=== PATIENT | male | born 1990 | race Asian ===

== ENCOUNTER 2022-07-26 09:42 | Emergency (ER) | payer MEDICARE, OTHER ==
[~2022-07-26] VITALS: Ht 152.4 cm; Wt 45.5 kg
[2022-07-26] MEDS ORDERED: BACL5TAB PO (09:55)
[2022-07-26] MEDS ORDERED: DIAZEPAM 5 MG TABLET PO ONE (10:15)
[2022-07-26] MEDS ORDERED: SODIUM CHLORIDE 0.9% 1,000 ML IV ONE ×2 (12:30→13:45)
[2022-07-26 12:52] LABS: BASOPHILS % (AUTO) 0.6 % (0.0-2.0); EOSINOPHILS % (AUTO) 0.2 % (1.0-6.0); HEMATOCRIT 43.2 % (41-53); HEMOGLOBIN 13.9 g/dL (13.5-17.5); LYMPHOCYTES # (AUTO) 2.3 K/uL (1.0-4.8); LYMPHOCYTES % (AUTO) 15.5 % (22.0-44.0); MEAN CORPUSCULAR HEMOGLOBIN 28.9 pg (26.0-34.0); MEAN CORPUSCULAR HGB CONC 32.2 G/dL (31.0-37.0); MEAN CORPUSCULAR VOLUME 90 fL (80-100); MONOCYTES # (AUTO) 0.7 K/uL (0.1-1.0); NEUTROPHILS # (AUTO) 11.8 K/uL (1.8-7.7); NEUTROPHILS % (AUTO) 78.7 % (40.0-70.0); PLATELET COUNT (AUTO) 421 K/uL (150-450); RED BLOOD CELL COUNT(AUTO) 4.82 MIL/uL (4.50-5.90); RED CELL DISTRIBUTION WIDTH 12.4 % (11.5-14.5)
[2022-07-26 13:21] LABS: ANION GAP 10 mmol/L (8-16); CALCIUM, TOTAL 9.9 mg/dL (8.8-10.5); CARBON DIOXIDE 27 mmol/L (22-29); CHLORIDE 103 mmol/L (98-107); CREATININE 0.65 mg/dL (0.60-1.30); GLUCOSE,RANDOM 84 mg/dL (70-110); POTASSIUM 3.7 mmol/L (3.5-5.1); SODIUM SERUM 140 mmol/L (136-145); UREA NITROGEN, BLOOD 13 mg/dL (7-18)
[2022-07-26 13:22] LABS: GLOMERULAR FILTR. RATE CALC > 60 mL/min (>60)
[2022-07-26 13:24] LABS: LACTIC ACID 3.4 mmol/L (0.4-2.0)
[2022-07-26 13:46] LABS: ALANINE AMINOTRANSFERASE 45 U/L (12-78); ALBUMIN 4.7 g/dL (3.4-5.0); ALKALINE PHOSPHATASE 101 U/L (46-116); ASPARTATE AMINOTRANSFERASE 36 U/L (15-37); BILIRUBIN,TOTAL 0.5 mg/dL (0.1-1.0); CREATINE KINASE, TOTAL ONLY 485 U/L (39-308); TOTAL PROTEIN, SERUM 9.1 g/dL (6.4-8.2)
[2022-07-26 14:08] LABS: COVID AG,FIA SOURCE NASAL SWAB
[2022-07-26 14:14] LABS: B-TYPE NATRIURETIC PEPTIDE 6 pg/mL (0-100)
[2022-07-26 14:28] LABS: INFLUENZA TYPE A NEGATIVE FOR TYPE A (NEGATIVE); INFLUENZA TYPE B NEGATIVE FOR TYPE B (NEGATIVE)
[2022-07-26] MEDS ORDERED: LORazepam 2 MG/ML VIAL IVP ONE (15:00)
[2022-07-26 15:06] LABS: APPEARANCE,URINE CLEAR (CLEAR); BILIRUBIN,URINE NEGATIVE (NEGATIVE); GLUCOSE, URINE (UA) NEGATIVE (NEGATIVE); KETONES,URINE 80-100 mg/dL (NEGATIVE); LEUKOCYTE ESTERASE ,URINE NEGATIVE (NEGATIVE); NITRATE,URINE NEGATIVE (NEGATIVE); OCCULT BLOOD,URINE SMALL (NEGATIVE); PROTEIN,URINE 30-70 mg/dL (NEGATIVE); SPECIFIC GRAVITIY, URINE 1.031 (1.003-1.030); UROBILINOGEN,URINE <=1.0 mg/dL (<=1.0)
[2022-07-26 15:17] LABS: BACTERIA,URINE Few /HPF (None Seen); SQUAMOUS EPITHELIAL CELL,UR Few /LPF (None Seen); WBC,URINE 0-2 /HPF (0-5)
[2022-07-26] MEDS ORDERED: AZITHROMYCIN 500 MG/NS 250 ML IV ONE (15:30)
[2022-07-26] MEDS ORDERED: CefTRIAXone 1 GM/DEXTROSE 50 ML IV ONE (15:30)
[2022-07-26 15:36] LABS: GLUCOMETER DEV NAME(LOC) ERT.5; GLUCOSE,POINT OF CARE 91 MG/DL (70-110)
[2022-07-26] MEDS ORDERED: LORA-1000 PO (16:27)
[2022-07-26] MEDS ORDERED: CEPH-558 PO (16:27)
[2022-07-26 17:53] VITALS: BP 137/97
== END 2022-07-26 18:02 | disposition left against medical advice (07) ==
LOC: EMS 09:48
DX: G80.9 Cerebral palsy, unspecified (principal); Z20.822 Contact with and (suspected) exposure to COVID-19; M62.838 Other muscle spasm; M62.82 Rhabdomyolysis; R00.0 Tachycardia, unspecified; R74.02 Elevation of levels of lactic acid dehydrogenase [LDH]
CPT/HCPCS: 99285; 96365; 71045; 96361; 96375; 87426; 80053; 81001; 82550; 82962; 83605; 83880; 84484; 85025; 87040; 87804; 93005; 96368; 84145; 36415; J0456; J0696; J2060; J7030; 99283

== ENCOUNTER 2022-08-05 07:55 | Inpatient (IN) | payer MEDICARE, OTHER ==
[~2022-08-05] VITALS: Ht 157.5 cm; Wt 54.5 kg
[~2022-08-05 07:55] MED LIST: BACL5TAB PO; CEPH-558 PO; LORA-1000 PO
[2022-08-05] MEDS ORDERED: BACL20TA PO (08:08)
[2022-08-05] MEDS ORDERED: DIAZ5TAB5 PO (08:08)
[2022-08-05] MEDS ORDERED: LORazepam 2 MG/ML VIAL IM ONE (08:30)
[2022-08-05] MEDS ORDERED: SODIUM CHLORIDE 0.9% 2,000 ML IV ONE (09:00)
[2022-08-05] MEDS ORDERED: DiphenhydrAMINE HCL 50 MG/ML VIAL IVP ONE (09:00)
[2022-08-05] MEDS ORDERED: DIAZEPAM 5 MG/ML 2 ML SYRINGE IVP ONE (09:00)
[2022-08-05] MEDS ORDERED: BACLOFEN 10 MG TABLET PO ONE (09:00)
[2022-08-05 09:26] LABS: COVID AG,FIA SOURCE NASOPHARYNGEAL
[2022-08-05 09:28] LABS: BASOPHILS % (AUTO) 0.7 % (0.0-2.0); EOSINOPHILS % (AUTO) 0.1 % (1.0-6.0); HEMATOCRIT 41.8 % (41-53); HEMOGLOBIN 13.7 g/dL (13.5-17.5); LYMPHOCYTES # (AUTO) 1.6 K/uL (1.0-4.8); LYMPHOCYTES % (AUTO) 11.9 % (22.0-44.0); MEAN CORPUSCULAR HEMOGLOBIN 28.9 pg (26.0-34.0); MEAN CORPUSCULAR HGB CONC 32.7 G/dL (31.0-37.0); MEAN CORPUSCULAR VOLUME 89 fL (80-100); MONOCYTES # (AUTO) 0.6 K/uL (0.1-1.0); MONOCYTES % (AUTO) 4.3 % (2.0-9.0); NEUTROPHILS # (AUTO) 11.4 K/uL (1.8-7.7); PLATELET COUNT (AUTO) 460 K/uL (150-450); RED BLOOD CELL COUNT(AUTO) 4.72 MIL/uL (4.50-5.90); RED CELL DISTRIBUTION WIDTH 12.3 % (11.5-14.5)
[2022-08-05 09:41] LABS: ANION GAP 16 mmol/L (8-16); CALCIUM, TOTAL 9.7 mg/dL (8.8-10.5); CARBON DIOXIDE 24 mmol/L (22-29); CHLORIDE 102 mmol/L (98-107); CREATININE 0.91 mg/dL (0.60-1.30); GLUCOSE,RANDOM 97 mg/dL (70-110); POTASSIUM 3.9 mmol/L (3.5-5.1); SODIUM SERUM 142 mmol/L (136-145); UREA NITROGEN, BLOOD 17 mg/dL (7-18)
[2022-08-05 09:43] LABS: GLOMERULAR FILTR. RATE CALC > 60 mL/min (>60)
[2022-08-05 09:51] LABS: LACTIC ACID 5.1 mmol/L (0.4-2.0)
[2022-08-05 10:05] LABS: ALANINE AMINOTRANSFERASE 53 U/L (12-78); ALBUMIN 4.6 g/dL (3.4-5.0); ALKALINE PHOSPHATASE 99 U/L (46-116); ASPARTATE AMINOTRANSFERASE 52 U/L (15-37); BILIRUBIN,TOTAL 0.9 mg/dL (0.1-1.0); CREATINE KINASE, TOTAL ONLY 706 U/L (39-308); LIPASE 66 U/L (73-393); TOTAL PROTEIN, SERUM 8.7 g/dL (6.4-8.2)
[2022-08-05] MEDS ORDERED: LORazepam 2 MG/ML VIAL IVP PRN (10:45)
[2022-08-05] MEDS ORDERED: BACLOFEN 10 MG TABLET PO PRN (10:45)
[2022-08-05] MEDS ORDERED: SODIUM CHLORIDE 0.9% 1,000 ML IV ONE (10:45)
[2022-08-05] MEDS ORDERED: ONDANSETRON HCL 4 MG/2 ML VIAL IVP PRN (11:00)
[2022-08-05] MEDS ORDERED: ACETAMINOPHEN 325 MG TABLET PO PRN (11:00)
[2022-08-05 11:14] LABS: APPEARANCE,URINE CLEAR (CLEAR); BILIRUBIN,URINE NEGATIVE (NEGATIVE); GLUCOSE, URINE (UA) NEGATIVE (NEGATIVE); KETONES,URINE 40-60 mg/dL (NEGATIVE); LEUKOCYTE ESTERASE ,URINE NEGATIVE (NEGATIVE); NITRATE,URINE NEGATIVE (NEGATIVE); OCCULT BLOOD,URINE SMALL (NEGATIVE); PROTEIN,URINE TRACE mg/dL (NEGATIVE); UROBILINOGEN,URINE <=1.0 mg/dL (<=1.0)
[2022-08-05 11:22] LABS: BACTERIA,URINE None Seen /HPF (None Seen); RBC,URINE None Seen /HPF (0-2); SQUAMOUS EPITHELIAL CELL,UR None Seen /LPF (None Seen); WBC,URINE None Seen /HPF (0-5)
[2022-08-05 11:31] LABS: THYROID STIMULATING HORMONE 1.04 uIU/mL (0.36-3.74)
[2022-08-05 12:09] LABS: AMPHET/METH SCREEN,URINE NEGATIVE (NEGATIVE); BARBITURATE SCREEN, URINE NEGATIVE (NEGATIVE); BENZODIAZEPINES SCREEN,URINE POSITIVE (NEGATIVE); CANNABINOID SCREEN,URINE NEGATIVE (NEGATIVE); COCAINE SCREEN,URINE NEGATIVE (NEGATIVE); METHADONE SCREEN, URINE NEGATIVE (NEGATIVE); OPIATE SCREEN,URINE NEGATIVE (NEGATIVE)
[2022-08-05 12:10] LABS: PHENCYCLIDINE SCREEN,URINE NEGATIVE (NEGATIVE)
[2022-08-05 12:30] VITALS: BP 143/85
[2022-08-05 15:15] VITALS: BP 138/89
[2022-08-05] MEDS: HEPARIN SODIUM,PORCINE 5,000 UNITS/ML VIAL SQ SCH (16:28)
[2022-08-05 20:20] VITALS: BP 111/79
[2022-08-05] MEDS: DOCUSATE SODIUM 100 MG CAPSULE PO SCH (21:00)
[2022-08-06 00:28] VITALS: BP 122/79
[2022-08-06 05:27] VITALS: BP 111/61
[2022-08-06 07:24] VITALS: BP 146/75
[2022-08-06] MEDS: HEPARIN SODIUM,PORCINE 5,000 UNITS/ML VIAL SQ SCH ×2 (08:19)
[2022-08-06] MEDS: DOCUSATE SODIUM 100 MG CAPSULE PO SCH ×2 (08:22→08:23)
[2022-08-06] MEDS ORDERED: FAMOTIDINE 20 MG TABLET PO SCH (09:00)
[2022-08-06] MEDS ORDERED: DIAZ5TAB5 PO ×6 (09:54→11:08)
[2022-08-06] MEDS ORDERED: CARVEDILOL 6.25 MG TABLET PO ONE (10:00)
== END 2022-08-06 12:00 | disposition home or self-care (01) | DRG 52 ==
LOC: EMS 07:56 → 5S 12:25
PROVIDERS: ADMIT Internal Medicine; ATTEND Internal Medicine
DX: G80.0 Spastic quadriplegic cerebral palsy (principal); M62.82 Rhabdomyolysis; R65.10 Systemic inflammatory response syndrome (SIRS) of non-infectious origin without acute organ dysfunction; Z20.822 Contact with and (suspected) exposure to COVID-19
CPT/HCPCS: 71045; 80053; 81001; 82550; 83605; 83690; 84443; 84484; 85025; 87040; 87081; 93005; 93306; 99291; J1200; J1644; J2060; J7030; 36415-L1; 36415-TC